=== PATIENT | female | born 1950 | race Two or more races ===

== ENCOUNTER 2021-12-12 08:59 | Inpatient (IN) | payer MEDICARE, MEDICAID ==
[~2021-12-12] VITALS: Ht 157.5 cm; Wt 60.2 kg
[2021-12-12 09:41] LABS: Basophils # (auto) 0 10 ^3/uL (0-0.2); Basophils % (auto) 0.6 % (0.0-2.0); Eosinophils # (auto) 0.1 10 ^3/uL (0-0.8); Eosinophils % (auto) 1.8 % (0.0-7.0); Hematocrit 35.1 % (36.0-46.0); Hemoglobin 11.7 g/dL (12.2-16.2); Lymphocytes # (auto) 1.4 10 ^3/uL (0.4-5.4); Lymphocytes % (auto) 24.2 % (10.0-50.0); Mean Corpuscular Hemoglobin 27.2 pg (28.0-32.0); Mean Corpuscular Hgb Conc. 33.2 g/dL (32.0-36.0); Mean Corpuscular Volume 81.8 fL (80.0-100.0); Monocytes # (auto) 0.4 10 ^3/uL (0-1.3); Monocytes % (auto) 6.2 % (0.0-12.0); Neutrophils # (auto) 3.8 10 ^3/uL (1.6-8.6); Neutrophils % (auto) 67.2 % (37.0-80.0); Red Cell Distribution Width 18.9 % (11.8-14.3); White Blood Cell 5.7 10^3/uL (4.4-10.8)
[2021-12-12 09:59] LABS: Albumin 3.5 g/dL (3.4-5.0); Calcium 9.2 mg/dL (8.5-10.1)
[2021-12-12 10:03] LABS: BUN/Creatinine Ratio 15.6; Bilirubin, Total 0.3 mg/dL (0.2-1.0); Total Protein 7.3 g/dL (6.4-8.2)
[2021-12-12 10:17] LABS: Potassium 2.8 mmol/L (3.5-5.1)
[2021-12-12] MEDS: POTASSIUM CHL 20MEQ/100ML 100 ML IV SCH ×2 (10:45→12:50)
[2021-12-12] MEDS ORDERED: SODIUM CHLORIDE 0.9% 1,000 ML IV ONE ×2 (11:30→18:30)
[2021-12-12] MEDS ORDERED: KETOROLAC TROMETH 30 MG/ML 1ML VIAL IV ONE (15:30)
[2021-12-12] MEDS ORDERED: DEXTROSE (50%) 50ML SYRG IV PRN (16:15)
[2021-12-12] MEDS ORDERED: NITROGLYCERIN 0.4 MG SL TAB SL PRN (16:30)
[2021-12-12] MEDS ORDERED: MORPHINE SULFATE INJ 2 MG/ml SYRG IV PRN (16:30)
[2021-12-12 16:49] LABS: Urine Bacteria NONE SEEN /hpf (None Seen); Urine Blood Negative /uL (Negative); Urine WBC 1 /hpf (0 - 5)
[2021-12-12 16:50] LABS: Cholesterol 132 mg/dL (< 200); HDL Cholesterol 39 mg/dL (40-59); LDL Cholesterol 83 mg/dL (< 100); Triglycerides 98 mg/dL (< 150)
[2021-12-12 17:00] LABS: Alcohol, Urine < 3.0 mg/dL (0-10); Amphetamine Screen, Urine NEGATIVE (NEGATIVE); Barbiturate Scree,Urine NEGATIVE (NEGATIVE); Benzodiazephine Screen, Urine NEGATIVE (NEGATIVE); Cannabinoid Screen, Urine NEGATIVE (NEGATIVE); Cocaine Screen, Urine NEGATIVE (NEGATIVE); Opiate Scree,Urine NEGATIVE (NEGATIVE); Phencyclidine Screen, Urine NEGATIVE (NEGATIVE)
[2021-12-12] MEDS: InsuLIN REG 1unit/0.01ml Soln (100units/ml) SC SCH ×2 (17:00→22:00)
[2021-12-12] MEDS: ACCU-CHEK COMFORT CURVE STRIP VI SCH ×2 (17:14→22:38)
[2021-12-12] MEDS: hydrALAZINE HCL 20 MG/ML VL IV PRN (17:43)
[2021-12-12] MEDS ORDERED: CLON0.5T3 PO (18:07)
[2021-12-12] MEDS ORDERED: CHLO50TA PO (18:07)
[2021-12-12] MEDS ORDERED: GABA-339 PO (18:07)
[2021-12-12] MEDS ORDERED: METO-158 PO (18:07)
[2021-12-12] MEDS ORDERED: BUSP15TA60 PO (18:07)
[2021-12-12] MEDS ORDERED: LOVA40TA72 PO (18:07)
[2021-12-12] MEDS ORDERED: LISI40TA11 PO (18:07)
[2021-12-12] MEDS ORDERED: METF-370 PO (18:07)
[2021-12-12] MEDS ORDERED: QUET400T13 PO (18:07)
[2021-12-12] MEDS ORDERED: VENL150C58 PO (18:07)
[2021-12-12] MEDS ORDERED: TRAZ100T3 PO (18:07)
[2021-12-12 18:34] LABS: Calcium 8.5 mg/dL (8.5-10.1); Potassium 3.7 mmol/L (3.5-5.1)
[2021-12-12 18:36] LABS: BUN/Creatinine Ratio 17.2
[2021-12-12 18:45] VITALS: BP 154/56
[2021-12-12 22:00] VITALS: BP 137/48
[2021-12-12] MEDS: HYDROcodone-ACET 5/325MG TAB PO PRN (23:45)
[2021-12-13] MEDS ORDERED: HYDROcodone-ACET 5/325MG TAB PO ONE (04:00)
[2021-12-13 05:00] VITALS: BP 116/44
[2021-12-13 06:21] LABS: Basophils # (auto) 0 10 ^3/uL (0-0.2); Basophils % (auto) 0.5 % (0.0-2.0); Eosinophils # (auto) 0.1 10 ^3/uL (0-0.8); Eosinophils % (auto) 1.8 % (0.0-7.0); Hematocrit 33.5 % (36.0-46.0); Hemoglobin 11.3 g/dL (12.2-16.2); Lymphocytes % (auto) 33.7 % (10.0-50.0); Mean Corpuscular Hemoglobin 27.6 pg (28.0-32.0); Mean Corpuscular Hgb Conc. 33.9 g/dL (32.0-36.0); Mean Corpuscular Volume 81.5 fL (80.0-100.0); Monocytes # (auto) 0.4 10 ^3/uL (0-1.3); Monocytes % (auto) 7.5 % (0.0-12.0); Neutrophils # (auto) 3.3 10 ^3/uL (1.6-8.6); Neutrophils % (auto) 56.5 % (37.0-80.0); Red Blood Cells 4.11 10^6/uL (4.0-5.20); Red Cell Distribution Width 18.9 % (11.8-14.3); White Blood Cell 5.9 10^3/uL (4.4-10.8)
[2021-12-13 06:37] LABS: Albumin 3.2 g/dL (3.4-5.0); Calcium 8.8 mg/dL (8.5-10.1); Potassium 3.2 mmol/L (3.5-5.1)
[2021-12-13 06:40] LABS: BUN/Creatinine Ratio 16.7
[2021-12-13] MEDS: InsuLIN REG 1unit/0.01ml Soln (100units/ml) SC SCH ×4 (06:40→22:00)
[2021-12-13] MEDS: ACCU-CHEK COMFORT CURVE STRIP VI SCH ×4 (06:40→22:00)
[2021-12-13 06:55] LABS: Bilirubin, Total 0.3 mg/dL (0.2-1.0); Total Protein 6.3 g/dL (6.4-8.2)
[2021-12-13 08:30] VITALS: BP 131/76
[2021-12-13] MEDS: NICOTINE 7MG/24HR TOPICAL PATCH TD SCH ×2 (10:16→10:34)
[2021-12-13] MEDS: HYDROcodone-ACET 5/325MG TAB PO PRN ×2 (10:36→23:48)
[2021-12-13 12:10] VITALS: BP 156/68
[2021-12-13] MEDS ORDERED: POTASSIUM CHL 20 Meq TABLET PO ONE (14:30)
[2021-12-13] MEDS ORDERED: HYDROcodone-ACET 10/325MG TAB PO PRN (16:15)
[2021-12-13 17:00] VITALS: BP 186/67
[2021-12-13] MEDS ORDERED: LOSARTAN POTASSIUM 50 MG TAB PO ONE (21:30)
[2021-12-13 22:00] VITALS: BP 101/62
[2021-12-14] MEDS: hydrALAZINE HCL 20 MG/ML VL IV PRN ×2 (02:52→15:35)
[2021-12-14 05:15] VITALS: BP 158/68
[2021-12-14] MEDS: ACCU-CHEK COMFORT CURVE STRIP VI SCH ×4 (06:04→22:07)
[2021-12-14] MEDS: InsuLIN REG 1unit/0.01ml Soln (100units/ml) SC SCH ×4 (06:10→22:09)
[2021-12-14 06:38] LABS: Calcium 9.5 mg/dL (8.5-10.1); Magnesium 1.7 mg/dL (1.6-2.6); Potassium 3.3 mmol/L (3.5-5.1)
[2021-12-14 06:40] LABS: BUN/Creatinine Ratio 16.7
[2021-12-14 08:16] VITALS: BP 149/81
[2021-12-14] MEDS ORDERED: POTASSIUM CHL 20 Meq TABLET PO ONE (08:45)
[2021-12-14] MEDS ORDERED: MAGNESIUM OXIDE 400 MG TAB PO ONE (08:45)
[2021-12-14] MEDS: HYDROcodone-ACET 5/325MG TAB PO PRN (08:59)
[2021-12-14] MEDS: NICOTINE 7MG/24HR TOPICAL PATCH TD SCH (08:59)
[2021-12-14] MEDS ORDERED: KETOROLAC TROMETH 30 MG/ML 1ML VIAL IV PRN (09:30)
[2021-12-14 12:53] VITALS: BP 164/71
[2021-12-14] MEDS ORDERED: PATIENTS OWN MEDICATION (Lovastatin 40 MG) PO SCH (13:00)
[2021-12-14] MEDS ORDERED: SOD CHL 0.9%/ KCL 40MEQ 1,000 ML IV ONE (13:00)
[2021-12-14] MEDS: BACLOFEN 10 MG TAB PO PRN (14:27)
[2021-12-14 16:35] VITALS: BP 165/63
[2021-12-14 18:22] VITALS: BP 164/70
[2021-12-14] MEDS: METOPROLOL TARTRATE 50 MG TAB PO SCH (22:07)
[2021-12-14] MEDS: PRAVASTATIN SODIUM 20 MG TAB PO SCH (22:07)
[2021-12-14] MEDS: KETOROLAC TROMETH 30 MG/ML 1ML VIAL IV PRN (22:10)
[2021-12-14 23:08] VITALS: BP 161/62
[2021-12-15 03:46] VITALS: BP 142/79
[2021-12-15] MEDS: ACCU-CHEK COMFORT CURVE STRIP VI SCH ×4 (06:53→20:58)
[2021-12-15] MEDS: InsuLIN REG 1unit/0.01ml Soln (100units/ml) SC SCH ×4 (06:54→20:56)
[2021-12-15 09:00] VITALS: BP 184/64
[2021-12-15] MEDS: KETOROLAC TROMETH 30 MG/ML 1ML VIAL IV PRN (09:08)
[2021-12-15 09:09] LABS: Calcium 9.4 mg/dL (8.5-10.1); Magnesium 1.9 mg/dL (1.6-2.6); Potassium 3.9 mmol/L (3.5-5.1)
[2021-12-15] MEDS: LISINOPRIL 20 MG TAB PO SCH (09:09)
[2021-12-15] MEDS: METOPROLOL TARTRATE 50 MG TAB PO SCH ×2 (09:09→20:58)
[2021-12-15 09:10] LABS: Basophils # (auto) 0 10 ^3/uL (0-0.2); Basophils % (auto) 0.6 % (0.0-2.0); Eosinophils # (auto) 0 10 ^3/uL (0-0.8); Eosinophils % (auto) 0.4 % (0.0-7.0); Hematocrit 36.1 % (36.0-46.0); Hemoglobin 11.9 g/dL (12.2-16.2); Lymphocytes # (auto) 1.8 10 ^3/uL (0.4-5.4); Lymphocytes % (auto) 25.7 % (10.0-50.0); Mean Corpuscular Hemoglobin 27.6 pg (28.0-32.0); Mean Corpuscular Volume 83.7 fL (80.0-100.0); Monocytes # (auto) 0.4 10 ^3/uL (0-1.3); Neutrophils # (auto) 4.8 10 ^3/uL (1.6-8.6); Neutrophils % (auto) 68.3 % (37.0-80.0); Red Blood Cells 4.32 10^6/uL (4.0-5.20)
[2021-12-15] MEDS: NICOTINE 7MG/24HR TOPICAL PATCH TD SCH (09:10)
[2021-12-15 09:58] LABS: Red Cell Distribution Width 19.9 % (11.8-14.3)
[2021-12-15] MEDS ORDERED: PATIENTS OWN MEDICATION (Lisinopril 40 MG) PO SCH (10:00)
[2021-12-15] MEDS ORDERED: amLODIPine BESYLATE 5 MG TAB PO SCH (10:00)
[2021-12-15 13:00] VITALS: BP 174/80
[2021-12-15] MEDS: hydrALAZINE HCL 20 MG/ML VL IV PRN ×2 (13:41→23:00)
[2021-12-15 17:00] VITALS: BP 149/67
[2021-12-15] MEDS: PRAVASTATIN SODIUM 20 MG TAB PO SCH (20:58)
[2021-12-15 22:00] VITALS: BP 174/67
[2021-12-15] MEDS ORDERED: MIRTAZAPINE 30 MG TAB PO SCH (22:00)
[2021-12-16 05:00] VITALS: BP 157/60
[2021-12-16] MEDS: BACLOFEN 10 MG TAB PO PRN (05:58)
[2021-12-16] MEDS: InsuLIN REG 1unit/0.01ml Soln (100units/ml) SC SCH ×2 (05:58→11:30)
[2021-12-16] MEDS: ACCU-CHEK COMFORT CURVE STRIP VI SCH ×2 (05:59→11:45)
[2021-12-16] MEDS: hydrALAZINE HCL 20 MG/ML VL IV PRN ×2 (06:14→17:00)
[2021-12-16] MEDS ORDERED: CYANOCOBALAMIN (B-12) 1000 MCG/1 ML VIAL IM ONE (07:30)
[2021-12-16 08:00] VITALS: BP 163/67
[2021-12-16] MEDS: LISINOPRIL 20 MG TAB PO SCH (09:50)
[2021-12-16] MEDS: METOPROLOL TARTRATE 50 MG TAB PO SCH (09:53)
[2021-12-16] MEDS: NICOTINE 7MG/24HR TOPICAL PATCH TD SCH (09:54)
[2021-12-16] MEDS ORDERED: amLODIPine BESYLATE 5 MG TAB PO SCH (10:00)
[2021-12-16] MEDS ORDERED: HYDROcodone-ACET 10/325MG TAB PO PRN (10:15)
[2021-12-16 12:00] VITALS: BP 155/52
[2021-12-16 16:00] VITALS: BP 174/64
[2021-12-16 20:01] VITALS: BP 132/81
== END 2021-12-16 20:15 | disposition home health service (06) | DRG 74 ==
LOC: EDBD 08:59 → ER 08:59 → TELE-WESTW 16:19
PROVIDERS: ADMIT Registered Nurse; ATTEND Internal Medicine
DX: G90.8 Other disorders of autonomic nervous system (principal); E87.1 Hypo-osmolality and hyponatremia; S06.9X9A Unspecified intracranial injury with loss of consciousness of unspecified duration, initial encounter; F99 Mental disorder, not otherwise specified; E87.6 Hypokalemia; E11.9 Type 2 diabetes mellitus without complications; M50.30 Other cervical disc degeneration, unspecified cervical region; Z20.822 Contact with and (suspected) exposure to COVID-19; E78.5 Hyperlipidemia, unspecified; F32.A Depression, unspecified; W18.39XA Other fall on same level, initial encounter; F41.9 Anxiety disorder, unspecified; I10 Essential (primary) hypertension; I48.91 Unspecified atrial fibrillation; Z63.4 Disappearance and death of family member; Z79.899 Other long term (current) drug therapy; Z82.49 Family history of ischemic heart disease and other diseases of the circulatory system; Z83.3 Family history of diabetes mellitus; Z91.51 Personal history of suicidal behavior; Z90.49 Acquired absence of other specified parts of digestive tract; Z88.8 Allergy status to other drugs, medicaments and biological substances; Y93.89 Activity, other specified; Y92.098 Other place in other non-institutional residence as the place of occurrence of the external cause; Y99.8 Other external cause status
CPT/HCPCS: 36415; 70450; 70551; 71045; 72125; 73030; 80048; 80053; 80061; 80307; 81001; 82306; 82607; 82962; 83036; 83735; 83880; 84439; 84443; 85025; 93005; 93306; 93886; 95819; 96361; 96365; 96366; 96375; 97110; 97116; 97163; 97530; 99291; G0378; J1815; J1885; J3480